=== PATIENT | male | born 1955 | race Caucasian/White ===

== ENCOUNTER 2023-01-18 03:07 | Emergency (ER) | payer OTHER ==
[2022-12-10 12:59] VITALS: O2SAT 91
[2022-12-11 16:00] VITALS: BP 114/79; TEMP 98.8
[~2023-01-18 03:07] MED LIST: ASPI-1420 PO; CYCL5TAB PO; OXYC5CAP18 PO; SERT25TA PO
== END 2023-01-18 05:04 | disposition left against medical advice (07) ==
LOC: ER 03:13
DX: Z53.21 Procedure and treatment not carried out due to patient leaving prior to being seen by health care provider (principal)

== ENCOUNTER 2023-02-24 05:30 | Emergency (ER) | payer OTHER ==
[~2023-02-24] VITALS: Ht 188 cm; Wt 99.8 kg
[2023-02-24 06:44] LABS: BASOPHILS % (AUTO) 0.5 % (0.0-2.0); EOSINOPHILS # (AUTO) 0.3 K/uL (0.0-0.7); EOSINOPHILS % (AUTO) 5.5 % (0.0-6.0); HEMATOCRIT 40 % (39-51); LYMPHOCYTES # (AUTO) 2.1 K/uL (0.8-4.8); MEAN CORPUSCULAR HEMOGLOBIN 30 PG (26.0-33.0); MEAN CORPUSCULAR HGB CONC 33 g/dl (31.0-36.0); MEAN CORPUSCULAR VOLUME 93 fL (80-96); MONOCYTES # (AUTO) 0.4 K/uL (0.1-1.30); MONOCYTES % (AUTO) 8.5 % (2.0-12.0); NEUTROPHILS # (AUTO) 2.2 K/uL (1.8-8.9); NEUTROPHILS % (AUTO) 43.5 % (43.0-81.0); PLATELET COUNT (AUTO) 179 K/uL (150-450)
[2023-02-24 07:01] LABS: CALCIUM, SERUM 8.9 mg/dL (8.5-10.1); CREATININE 0.9 mg/dL (0.6-1.3); POTASSIUM 3.7 mmol/L (3.5-5.1)
[2023-02-24 07:03] LABS: ALBUMIN 3.1 g/dL (3.4-5.0); BILIRUBIN,TOTAL 0.4 mg/dL (0.2-1.0); TOTAL PROTEIN, SERUM 8.3 g/dL (6.4-8.2)
[2023-02-24] MEDS ORDERED: VANCOMYCIN 1 GM in IV D5W 250 ML IV ONE (07:30)
[2023-02-24] MEDS ORDERED: IV NS 0.9% 1,000 ML BAG IV ONE (07:30)
[2023-02-24] MEDS ORDERED: FURO-145 PO (08:36)
[2023-02-24] MEDS ORDERED: CLIN300C12 PO (08:36)
[2023-02-24 08:46] VITALS: BP 122/80; TEMP 98.2; O2SAT 98
== END 2023-02-24 08:46 | disposition left against medical advice (07) ==
LOC: ER 05:32
DX: L97.929 Non-pressure chronic ulcer of unspecified part of left lower leg with unspecified severity (principal); L97.919 Non-pressure chronic ulcer of unspecified part of right lower leg with unspecified severity; J81.1 Chronic pulmonary edema; M79.89 Other specified soft tissue disorders; N40.0 Benign prostatic hyperplasia without lower urinary tract symptoms; E11.9 Type 2 diabetes mellitus without complications; F32.A Depression, unspecified; F17.200 Nicotine dependence, unspecified, uncomplicated; Z86.73 Personal history of transient ischemic attack (TIA), and cerebral infarction without residual deficits; Z60.2 Problems related to living alone; Z79.899 Other long term (current) drug therapy
CPT/HCPCS: 99285; 93970; 71045; 93005; 85025; 36415; 80053; 84484; 83880; J3370; J7060

== ENCOUNTER 2024-06-20 19:41 | Emergency (ER) | payer MEDICARE, OTHER ==
[~2024-06-20] VITALS: Ht 188 cm; Wt 82.6 kg
[~2024-06-20 19:41] MED LIST changes: +CLIN300C12 PO; +FURO-145 PO
[2024-06-20 20:23] LABS: BASOPHILS % (AUTO) 0.9 % (0.0-2.0); EOSINOPHILS # (AUTO) 0.2 K/uL (0.0-0.7); EOSINOPHILS % (AUTO) 4.1 % (0.0-6.0); HEMATOCRIT 40 % (39-51); HEMOGLOBIN 13.5 g/dL (13.5-17.5); LYMPHOCYTES # (AUTO) 1.3 K/uL (0.8-4.8); LYMPHOCYTES % (AUTO) 28.4 % (20.0-44.0); MEAN CORPUSCULAR HEMOGLOBIN 32 PG (26.0-33.0); MEAN CORPUSCULAR HGB CONC 34 g/dl (31.0-36.0); MEAN CORPUSCULAR VOLUME 93 fL (80-96); MONOCYTES # (AUTO) 0.4 K/uL (0.1-1.30); MONOCYTES % (AUTO) 9.1 % (2.0-12.0); NEUTROPHILS # (AUTO) 2.7 K/uL (1.8-8.9); NEUTROPHILS % (AUTO) 57.5 % (43.0-81.0); PLATELET COUNT (AUTO) 144 K/uL (150-450); RED BLOOD CELL COUNT(AUTO) 4.29 MIL/uL (4.5-6.0); RED CELL DISTRIBUTION WIDTH 13.4 % (11.5-15.0); WHITE BLOOD COUNT (AUTO) 4.7 K/uL (4.3-11.0)
[2024-06-20 20:31] LABS: CREATININE 0.9 mg/dL (0.6-1.3); POTASSIUM 3.6 mmol/L (3.5-5.1)
[2024-06-20 20:58] LABS: PARTIAL THROMBOPLASTIN TIME 28.5 SEC (24.3-34.3)
[2024-06-20 21:00] VITALS: TEMP 98
[2024-06-20] MEDS ORDERED: TENECTEPLASE 50 MG KIT IV ONE (21:00)
[2024-06-20] MEDS: TENECTEPLASE 50 MG KIT IV ONE (21:10)
[2024-06-20] MEDS: NORMAL SALINE FLUSH 10 ML SYR IV ONE ×2 (21:10)
[2024-06-20] MEDS: TNKASE WASTE DOCUMENTATION IV ONE (21:27)
[2024-06-20 21:48] LABS: INR 1.16 (0.91-1.10); PROTHROMBIN TIME 12.2 SECS (9.2-11.1)
[2024-06-21 00:58] LABS: APPEARANCE,URINE CLEAR (CLEAR); BILIRUBIN,URINE NEGATIVE (NEGATIVE); BLOOD, URINE NEGATIVE Ery/uL (NEGATIVE); COLOR,URINE YELLOW (YELLOW); KETONES,URINE NEGATIVE (NEGATIVE); LEUKOCYTE ESTERASE ,URINE NEGATIVE (NEGATIVE); NITRITE, URINE NEGATIVE (NEGATIVE); PROTEIN,URINE NEGATIVE (NEGATIVE); UGLUCOSE NEGATIVE (NEGATIVE)
[2024-06-21 01:19] LABS: ADD URINE CULTURE NO; BACTERIA,URINE Few /HPF (None Seen); RBC,URINE 0-2 /HPF (0-2); SQUAMOUS EPITHELIAL CELL,UR Few /HPF (None Seen); WBC,URINE 0-2 /HPF (0-3)
[2024-06-21 01:45] VITALS: BP 138/93; O2SAT 99
[2024-06-21] MEDS ORDERED: BLOOD SUGAR DIAGNOSTIC 1 EACH STRIP IN SCH (07:30)
[2024-06-21] MEDS ORDERED: CYCLOBENZAPRINE 10 MG TABLET PO SCH (18:00)
[2024-06-21] MEDS ORDERED: SIMVASTATIN 40 MG TABLET PO SCH (22:00)
== END 2024-06-21 02:10 | disposition short-term general hospital (02) ==
LOC: ER 19:42 → UNDOADMIN 22:29 → ICU 22:29 → UNDODISIN 06-21 01:44 → ICU 06-21 02:10 → TRANSITION 06-21 02:10 → ER 06-21 02:10
DX: I63.9 Cerebral infarction, unspecified (principal); G61.81 Chronic inflammatory demyelinating polyneuritis; G81.94 Hemiplegia, unspecified affecting left nondominant side; N40.0 Benign prostatic hyperplasia without lower urinary tract symptoms; E11.9 Type 2 diabetes mellitus without complications; F32.A Depression, unspecified; F19.10 Other psychoactive substance abuse, uncomplicated; F17.200 Nicotine dependence, unspecified, uncomplicated; Z86.73 Personal history of transient ischemic attack (TIA), and cerebral infarction without residual deficits; Z88.0 Allergy status to penicillin; Z91.018 Allergy to other foods; Z79.82 Long term (current) use of aspirin; Z79.899 Other long term (current) drug therapy; Z60.2 Problems related to living alone
CPT/HCPCS: 36415; 37195; 70450; 70496; 70498; 80048; 81001; 82962; 84484; 85025; 85730; 93005; 99291; J7050; Q9967; G0378; J3101

== ENCOUNTER 2024-07-22 11:31 | Inpatient (IN) | payer MEDICARE, OTHER ==
[~2024-07-22] VITALS: Ht 188 cm; Wt 86.2 kg
[2024-07-22] MEDS ORDERED: IOHEXOL-350 100 ML VIAL IV ONE (11:46)
[2024-07-22 12:05] LABS: BASOPHILS % (AUTO) 0.7 % (0.0-2.0); CALCIUM, SERUM 8.9 mg/dL (8.5-10.1); CARBON DIOXIDE 29 mmol/L (21-32); CHLORIDE 106 mmol/L (98-107); EOSINOPHILS # (AUTO) 0.1 K/uL (0.0-0.7); EOSINOPHILS % (AUTO) 1.6 % (0.0-6.0); GLUCOSE 118 mg/dL (74-106); HEMATOCRIT 40 % (39-51); HEMOGLOBIN 13.7 g/dL (13.5-17.5); LYMPHOCYTES # (AUTO) 1.7 K/uL (0.8-4.8); LYMPHOCYTES % (AUTO) 27.9 % (20.0-44.0); MEAN CORPUSCULAR HEMOGLOBIN 32 PG (26.0-33.0); MEAN CORPUSCULAR HGB CONC 34 g/dl (31.0-36.0); MEAN CORPUSCULAR VOLUME 94 fL (80-96); MONOCYTES # (AUTO) 0.6 K/uL (0.1-1.30); MONOCYTES % (AUTO) 9.4 % (2.0-12.0); NEUTROPHILS # (AUTO) 3.6 K/uL (1.8-8.9); NEUTROPHILS % (AUTO) 60.4 % (43.0-81.0); PLATELET COUNT (AUTO) 183 K/uL (150-450); POTASSIUM 3.6 mmol/L (3.5-5.1); RED BLOOD CELL COUNT(AUTO) 4.29 MIL/uL (4.5-6.0); RED CELL DISTRIBUTION WIDTH 13.9 % (11.5-15.0); SODIUM SERUM 142 mmol/L (136-145); UREA NITROGEN, BLOOD 14 mg/dL (7-18)
[2024-07-22 12:10] LABS: INR 1.18 (0.91-1.10); PARTIAL THROMBOPLASTIN TIME 26.9 SEC (24.3-34.3); PROTHROMBIN TIME 12.4 SECS (9.2-11.1)
[2024-07-22] MEDS: ASPIRIN 325 MG TABLET PO ONE (12:34)
[2024-07-22] MEDS ORDERED: ASPI-1420 PO (12:59)
[2024-07-22 13:15] LABS: APPEARANCE,URINE CLEAR (CLEAR); BILIRUBIN,URINE NEGATIVE (NEGATIVE); BLOOD, URINE NEGATIVE Ery/uL (NEGATIVE); COLOR,URINE YELLOW (YELLOW); KETONES,URINE TRACE mg/dL (NEGATIVE); LEUKOCYTE ESTERASE ,URINE NEGATIVE (NEGATIVE); NITRITE, URINE NEGATIVE (NEGATIVE); PH,URINE 6.5 (5.0-8.0); PROTEIN,URINE NEGATIVE (NEGATIVE); UGLUCOSE NEGATIVE (NEGATIVE)
[2024-07-22 13:18] LABS: AMPHETAMINE, URINE NEGATIVE (NEGATIVE); BARBITURATE, URINE NEGATIVE (NEGATIVE); BENZODIAZEPINE, URINE NEGATIVE (NEGATIVE); CANNABINOID, URINE NEGATIVE (NEGATIVE); COCCAINE, URINE NEGATIVE (NEGATIVE); PHENCYCLIDINE SCREEN,URINE NEGATIVE (NEGATIVE)
[2024-07-22] MEDS ORDERED: ACETAMINOPHEN 325 MG TABLET PO PRN (13:30)
[2024-07-22 13:38] LABS: ADD URINE CULTURE NO; BACTERIA,URINE Rare /HPF (None Seen); RBC,URINE 0-2 /HPF (0-2); SQUAMOUS EPITHELIAL CELL,UR None Seen /HPF (None Seen); WBC,URINE 0-2 /HPF (0-3)
[2024-07-22 13:49] LABS: OPIATE, URINE POSITIVE (NEGATIVE)
[2024-07-22 14:28] VITALS: BP 101/71; TEMP 98.2; O2SAT 97
[2024-07-22 16:00] VITALS: BP 128/96; TEMP 98.2; O2SAT 98
[2024-07-22] MEDS: ASPIRIN 300 MG/SUPP.RECT RC ONE (16:28)
[2024-07-22] MEDS: BLOOD SUGAR DIAGNOSTIC 1 EACH STRIP IN SCH (18:03)
[2024-07-22 20:00] VITALS: BP 130/76; TEMP 98.8; O2SAT 95
[2024-07-22] MEDS: HYDROCODONE/APAP 5/325MG TABLET PO PRN (20:01)
[2024-07-22] MEDS: ATORVASTATIN 40 MG TABLET PO SCH (22:27)
[2024-07-22] MEDS: MORPHINE SULFATE INJ 2 MG/ML DISP.SYRIN IV PRN (22:28)
[2024-07-23] VITALS: BP 138/81; TEMP 99; O2SAT 98
[2024-07-23 04:00] VITALS: BP 114/66; TEMP 98.9; O2SAT 98
[2024-07-23 08:00] VITALS: BP 126/86; TEMP 99.3; O2SAT 95
[2024-07-23 08:03] LABS: BASOPHILS % (AUTO) 0.4 % (0.0-2.0); EOSINOPHILS # (AUTO) 0.2 K/uL (0.0-0.7); EOSINOPHILS % (AUTO) 2.4 % (0.0-6.0); HEMATOCRIT 41 % (39-51); HEMOGLOBIN 13.9 g/dL (13.5-17.5); LYMPHOCYTES # (AUTO) 2.2 K/uL (0.8-4.8); LYMPHOCYTES % (AUTO) 32.3 % (20.0-44.0); MEAN CORPUSCULAR HEMOGLOBIN 31 PG (26.0-33.0); MEAN CORPUSCULAR HGB CONC 34 g/dl (31.0-36.0); MEAN CORPUSCULAR VOLUME 93 fL (80-96); MONOCYTES # (AUTO) 0.6 K/uL (0.1-1.30); MONOCYTES % (AUTO) 8.9 % (2.0-12.0); NEUTROPHILS # (AUTO) 3.8 K/uL (1.8-8.9); PLATELET COUNT (AUTO) 186 K/uL (150-450); RED BLOOD CELL COUNT(AUTO) 4.41 MIL/uL (4.5-6.0); RED CELL DISTRIBUTION WIDTH 13.9 % (11.5-15.0); WHITE BLOOD COUNT (AUTO) 6.8 K/uL (4.3-11.0)
[2024-07-23 08:34] LABS: CALCIUM, SERUM 8.7 mg/dL (8.5-10.1); CREATININE 0.9 mg/dL (0.6-1.3); POTASSIUM 3.5 mmol/L (3.5-5.1)
[2024-07-23] MEDS: ASPIRIN 81 MG TAB.CHEW PO SCH (08:39)
[2024-07-23] MEDS: PANTOPRAZOLE 40 MG TABLET.DR PO SCH (08:39)
[2024-07-23 08:50] LABS: THYROID STIMULATING HORMONE 0.99 uIU/mL (0.358-3.74)
[2024-07-23] MEDS ORDERED: LORAZEPAM 4 MG/ML VIAL IV STA (09:31)
[2024-07-23] MEDS: LORAZEPAM INJ 2 MG/ML VIAL IV STA (11:05)
[2024-07-23 12:00] VITALS: BP 122/80; TEMP 98.4; O2SAT 96
[2024-07-23] MEDS: CLOPIDOGREL BISULFATE 75 MG TABLET PO SCH (12:42)
[2024-07-23 16:00] VITALS: BP 118/89; TEMP 97.9; O2SAT 97
[2024-07-23] MEDS ORDERED: OLANZAPINE 10 MG VIAL IM STA (17:29)
[2024-07-23 20:00] VITALS: BP 110/89; TEMP 98.1; O2SAT 97
[2024-07-24] VITALS: BP 144/84; TEMP 98.1; O2SAT 97
[2024-07-24 04:00] VITALS: BP 134/76; TEMP 98.1; O2SAT 97
[2024-07-24 08:00] VITALS: BP 111/94; TEMP 98.8; O2SAT 98
[2024-07-24] MEDS: ASPIRIN EC 81 MG TABLET.DR PO SCH (08:06)
[2024-07-24 12:00] VITALS: BP 115/74; TEMP 98.8; O2SAT 99
[2024-07-24] MEDS: MORPHINE SULFATE INJ 4 MG/ML DISP.SYRIN IV PRN (13:14)
[2024-07-24 16:00] VITALS: BP 122/78; TEMP 98.9; O2SAT 99
[2024-07-24] MEDS: HYDROMORPHONE 1 MG/1 ML DISP.SYRIN IV ONE (17:11)
== END 2024-07-24 17:20 | disposition short-term general hospital (02) | DRG 552 ==
LOC: ER 11:33 → TELE1 13:16
PROVIDERS: ATTEND Internal Medicine
DX: M48.02 Spinal stenosis, cervical region (principal); I69.351 Hemiplegia and hemiparesis following cerebral infarction affecting right dominant side; F32.A Depression, unspecified; E78.5 Hyperlipidemia, unspecified; N40.0 Benign prostatic hyperplasia without lower urinary tract symptoms; G35 Multiple sclerosis; E11.42 Type 2 diabetes mellitus with diabetic polyneuropathy; G89.4 Chronic pain syndrome; R26.9 Unspecified abnormalities of gait and mobility; Z88.0 Allergy status to penicillin; Z91.018 Allergy to other foods; Z79.82 Long term (current) use of aspirin; Z79.899 Other long term (current) drug therapy; R29.709 NIHSS score 9; R78.1 Finding of opiate drug in blood; M48.062 Spinal stenosis, lumbar region with neurogenic claudication; Z86.69 Personal history of other diseases of the nervous system and sense organs
CPT/HCPCS: 36415; 70450-TC; 70496-TC; 70498-TC; 70551-TC; 71045-TC; 72141-TC; 80048-TC; 80061-TC; 81001; 82962-TC; 84443-TC; 84484-TC; 85025-TC; 85730-TC; 92526; 92611-TC; 93307-TC; 97110-TC; 97116-TC; 97530-TC; 97535-TC; G0378; G0480; J1171; J2060; J2270; Q9967